=== PATIENT | male | born 1955 | race Hispanic/Latino ===

== ENCOUNTER 2023-01-18 07:50 | Day surgery (SDC) | payer MEDICARE ==
[2023-01-14 11:10] LABS: BASOPHILS % (AUTO) 0.4 % (0.0-5.0); EOSINOPHILS % (AUTO) 0.7 % (0.0-8.0); HEMATOCRIT 45.8 % (42-54); LYMPHOCYTES % (AUTO) 21.8 % (21.0-51.0); MEAN CORPUSCULAR HEMOGLOBIN 31.1 pg (27.0-33.0); MEAN CORPUSCULAR HGB CONC 33.4 g/dL (32.0-36.0); MEAN CORPUSCULAR VOLUME 93.1 fL (79-99); MONOCYTES % (AUTO) 6.9 % (3.0-13.0); PLATELET COUNT (AUTO) 305 K/uL (130-400); RED BLOOD CELL COUNT(AUTO) 4.92 MIL/uL (4.50-6.20); WHITE BLOOD COUNT (AUTO) 9.8 K/uL (4.8-10.8)
[2023-01-14 11:27] VITALS: BP 137/74
[~2023-01-18] VITALS: Ht 172.7 cm; Wt 78.2 kg
[2023-01-18] VITALS (17 sets, daily range): BP systolic 124–159; BP diastolic 63–84
[2023-01-18] MEDS: CEFAZOLIN SODIUM 1 GM VIAL IVPB SCH ×2 (06:00→10:20)
[~2023-01-18 07:50] MED LIST: 0.9%NACL 1000ML 1,000 ML IV SCH; SIMV80TA91 PO
[2023-01-18] MEDS ORDERED: ROPIVACAINE 0.5% 5MG/ML 30ML IJ ONE (08:14)
[2023-01-18] MEDS ORDERED: LACTATED RINGERS 1000ML 1,000 ML IV ONE (09:05)
[2023-01-18] MEDS ORDERED: HYDRALAZINE 20MG/ML VIAL ONE (09:43)
[2023-01-18] MEDS ORDERED: PROPOFOL 10 MG/ML 20ML VIAL IV ONE (10:10)
[2023-01-18] MEDS ORDERED: MIDAZOLAM HCL 1 MG/ML 2ML VIAL ONE (10:10)
[2023-01-18] MEDS ORDERED: FENTANYL CITRATE PF 50 MCG/1 ML 2ML VIAL ONE ×3 (10:10→12:09)
[2023-01-18] MEDS ORDERED: ROCURONIUM 10MG/1ML SYR 10 MG/ML ML ONE ×2 (10:10→10:58)
[2023-01-18] MEDS ORDERED: ONDANSETRON 4MG INJ ONE (11:05)
[2023-01-18] MEDS ORDERED: NEOSTIGMINE 5MG/5ML SYR IV ONE (11:59)
[2023-01-18] MEDS ORDERED: GLYCOPYRROLATE 1 MG/5 ML SYRINGE ONE (11:59)
[2023-01-18] MEDS ORDERED: KETOROLAC 30MG VIAL (30MG/ML) ONE (12:07)
[2023-01-18] MEDS ORDERED: MEPERIDINE-PF 25 MG/ML SYG ONE ×2 (12:20→12:36)
[2023-01-18] MEDS ORDERED: KETOROLAC 15MG/ML VIAL (15MG/ML) ONE (13:01)
== END 2023-01-18 14:00 | disposition home or self-care (01) ==
LOC: DAH 07:50
PROVIDERS: ATTEND Surgery
DX: K40.90 Unilateral inguinal hernia, without obstruction or gangrene, not specified as recurrent (principal); Z20.822 Contact with and (suspected) exposure to COVID-19; Z98.890 Other specified postprocedural states; Z82.49 Family history of ischemic heart disease and other diseases of the circulatory system; Z83.3 Family history of diabetes mellitus
CPT/HCPCS: 85025; 87426; 36415; 93005; 49650; A4663; J7030; A4344; A4215 ×2; J7120; J3010 ×3; J0690; J3490; J2710; J0360; J2250; J2704; J2405; J2175 ×2; J2795; J1885; G0168; A4649; C1781; A4223; A4222; A4221; A4600

== ENCOUNTER 2023-01-26 22:56 | Inpatient (IN) | payer MEDICARE ==
[~2023-01-26] VITALS: Ht 172.7 cm; Wt 77.9 kg
[~2023-01-26 22:56] MED LIST changes: -0.9%NACL 1000ML 1,000 ML IV SCH
[2023-01-26] MEDS ORDERED: ACETAMINOPHEN 650 MG SUPPOSITORY RC ONE (23:05)
[2023-01-26] MEDS ORDERED: 0.9%NACL 1000ML 1,000 ML IV SCH ×2 (23:30)
[2023-01-26 23:48] LABS: BASOPHILS % (AUTO) 0.2 % (0.0-5.0); EOSINOPHILS % (AUTO) 1.1 % (0.0-8.0); LYMPHOCYTES % (AUTO) 4.4 % (21.0-51.0); MEAN CORPUSCULAR HEMOGLOBIN 30.6 pg (27.0-33.0); MEAN CORPUSCULAR HGB CONC 34.6 g/dL (32.0-36.0); MEAN CORPUSCULAR VOLUME 88.4 fL (79-99); MONOCYTES % (AUTO) 8.3 % (3.0-13.0); NEUTROPHILS % (AUTO) 84.9 % (40.0-77.0); PLATELET COUNT (AUTO) 340 K/uL (130-400); RED BLOOD CELL COUNT(AUTO) 4.41 MIL/uL (4.50-6.20); RED CELL DISTRIBUTION WIDTH 13.7 % (11.0-15.5); WHITE BLOOD COUNT (AUTO) 16.2 K/uL (4.8-10.8)
[2023-01-26 23:49] LABS: APPEARANCE,URINE CLEAR (CLEAR); BILIRUBIN,URINE NEGATIVE (NEGATIVE); COLOR,URINE LIGHT-YELLOW (YELLOW); GLUCOSE, URINE (UA) NEGATIVE (NEGATIVE); KETONES,URINE NEGATIVE (NEGATIVE); LEUKOCYTE ESTERASE ,URINE 250 Leu/uL (NEGATIVE); NITRATE,URINE NEGATIVE (NEGATIVE); OCCULT BLOOD,URINE MODERATE (NEGATIVE); PROTEIN,URINE NEGATIVE (NEGATIVE); UROBILINOGEN,URINE 0.2 mg/dL (0.2-1.0)
[2023-01-26 23:59] LABS: BACTERIA,URINE RARE /HPF (None Seen)
[2023-01-27] MEDS: ZOSYN 3.375GM +NS 50ML IVPB SCH ×2 (00:01→23:30)
[2023-01-27 00:05] LABS: ALBUMIN 3.1 g/dL (3.5-5.0); POTASSIUM 4.4 mmol/L (3.5-5.1); TOTAL PROTEIN, SERUM 7.6 g/dL (6.0-8.3)
[2023-01-27] MEDS ORDERED: ACETAMINOPHEN 650 MG SUPPOSITORY RC PRN (01:00)
[2023-01-27] MEDS ORDERED: ACETAMINOPHEN 325 MG TAB PO PRN (01:00)
[2023-01-27 04:20] VITALS: BP 129/71
[2023-01-27] MEDS ORDERED: DIAZ2TAB3 PO (04:41)
[2023-01-27] MEDS ORDERED: HYDR-4068 PO (04:41)
[2023-01-27 07:51] VITALS: BP 131/61
[2023-01-27] MEDS ORDERED: 0.9%NACL 1000ML 1,000 ML IV SCH (09:30)
[2023-01-27] MEDS: PANTOPRAZOLE 40 MG TAB DR PO SCH (10:19)
[2023-01-27] MEDS: ENOXAPARIN SODIUM 30 MG/0.3 ML SQ SCH (10:20)
[2023-01-27 11:57] VITALS: BP 142/64
[2023-01-27 15:23] LABS: CREATININE 4.8 mg/dL (0.5-1.5); POTASSIUM 3.2 mmol/L (3.5-5.1)
[2023-01-27] MEDS ORDERED: ZOSYN 3.375GM +NS 50ML IVPB SCH (15:30)
[2023-01-27] MEDS ORDERED: DIAZEPAM 2 MG TAB PO PRN (15:30)
[2023-01-27] MEDS ORDERED: 0.9%NACL 50ML IV SCH (15:30)
[2023-01-27 15:39] VITALS: BP 151/72
[2023-01-27] MEDS: NICOTINE 14 MG/ 24 HR PATCH TD SCH (16:00)
[2023-01-27] MEDS ORDERED: HALOPERIDOL INJ 5 MG/ML VIAL IM PRN (16:00)
[2023-01-27] MEDS ORDERED: NICOTINE 14 MG/ 24 HR PATCH TD ONE (16:13)
[2023-01-27] MEDS: TAMSULOSIN HCL 0.4 MG CAP.ER.24H PO SCH (16:27)
[2023-01-27 20:34] VITALS: BP 135/62
[2023-01-27] MEDS: SENNOSIDES 8.6 MG TABLET PO SCH (21:00)
[2023-01-27] MEDS: POLYETHYLENE GLYCOL 3350 17 GM POWD.PACK PO SCH (21:00)
[2023-01-27] MEDS: ZOSYN 3.375GM+NS 50ML 50 ML IVPB SCH (21:36)
[2023-01-27] MEDS: SIMVASTATIN 20 MG TABLET PO SCH (21:37)
[2023-01-27 23:19] VITALS: BP 132/68
[2023-01-28 03:42] VITALS: BP 128/70
[2023-01-28 05:24] LABS: CREATININE 2.3 mg/dL (0.5-1.5); MAGNESIUM 1.5 mg/dL (1.80-2.40); PHOSPHORUS 3.3 mg/dL (2.5-4.9); POTASSIUM 4.5 mmol/L (3.5-5.1)
[2023-01-28 06:21] LABS: HEMATOCRIT 33.2 % (42-54); MEAN CORPUSCULAR HEMOGLOBIN 31.3 pg (27.0-33.0); MEAN CORPUSCULAR HGB CONC 34.6 g/dL (32.0-36.0); MEAN CORPUSCULAR VOLUME 90.2 fL (79-99); RED BLOOD CELL COUNT(AUTO) 3.68 MIL/uL (4.50-6.20)
[2023-01-28 07:00] VITALS: BP 112/54
[2023-01-28] MEDS: ZOSYN 3.375GM+NS 50ML 50 ML IVPB SCH ×2 (09:38→21:10)
[2023-01-28] MEDS: NICOTINE 14 MG/ 24 HR PATCH TD SCH (09:45)
[2023-01-28] MEDS: ENOXAPARIN SODIUM 30 MG/0.3 ML SQ SCH (09:46)
[2023-01-28] MEDS: SENNOSIDES 8.6 MG TABLET PO SCH ×2 (09:47→21:00)
[2023-01-28] MEDS: POLYETHYLENE GLYCOL 3350 17 GM POWD.PACK PO SCH ×2 (09:47→21:00)
[2023-01-28] MEDS: PANTOPRAZOLE 40 MG TAB DR PO SCH (09:48)
[2023-01-28] MEDS: TAMSULOSIN HCL 0.4 MG CAP.ER.24H PO SCH (09:48)
[2023-01-28] MEDS ORDERED: RENAL DOSE IV PRN (10:00)
[2023-01-28] MEDS ORDERED: KCL 20 MEQ ERTAB PO PRN (10:00)
[2023-01-28] MEDS ORDERED: LIDOCAINE HCL-MPF 1% 2ML VIAL IV PRN (10:00)
[2023-01-28] MEDS ORDERED: POTASSIUM CHLORIDE 20MEQ/100ML 100 ML IV PRN (10:00)
[2023-01-28] MEDS: DEXTROSE 5 %-0.45 % NACL 1,000 ML IV SCH (10:47)
[2023-01-28 11:00] VITALS: BP 115/52
[2023-01-28 16:06] VITALS: BP 109/61
[2023-01-28 20:24] VITALS: BP 127/72
[2023-01-28] MEDS: SIMVASTATIN 20 MG TABLET PO SCH (21:11)
[2023-01-28 23:30] VITALS: BP 130/66
[2023-01-29 03:56] VITALS: BP 117/66
[2023-01-29 05:19] LABS: BASOPHILS % (AUTO) 0.4 % (0.0-5.0); EOSINOPHILS % (AUTO) 5.6 % (0.0-8.0); HEMATOCRIT 33.1 % (42-54); LYMPHOCYTES % (AUTO) 20.6 % (21.0-51.0); MEAN CORPUSCULAR HEMOGLOBIN 30.7 pg (27.0-33.0); MEAN CORPUSCULAR HGB CONC 34.1 g/dL (32.0-36.0); MEAN CORPUSCULAR VOLUME 89.9 fL (79-99); MONOCYTES % (AUTO) 11.5 % (3.0-13.0); NEUTROPHILS % (AUTO) 60.8 % (40.0-77.0); PLATELET COUNT (AUTO) 309 K/uL (130-400); RED BLOOD CELL COUNT(AUTO) 3.68 MIL/uL (4.50-6.20); RED CELL DISTRIBUTION WIDTH 13.7 % (11.0-15.5); WHITE BLOOD COUNT (AUTO) 8.6 K/uL (4.8-10.8)
[2023-01-29 05:41] LABS: ALBUMIN 2.2 g/dL (3.5-5.0); CREATININE 1.3 mg/dL (0.5-1.5); TOTAL PROTEIN, SERUM 5.3 g/dL (6.0-8.3)
[2023-01-29 05:42] LABS: POTASSIUM 2.7 mmol/L (3.5-5.1)
[2023-01-29] MEDS: POTASSIUM CHLORIDE 10% ELIXIR 20 MEQ/15 ML UDCUP PO PRN (06:26)
[2023-01-29] MEDS: POTASSIUM CHLORIDE 10MEQ/100ML 100 ML IV PRN (06:28)
[2023-01-29] MEDS: LIDOCAINE HCL-MPF 1% 2ML VIAL IV PRN (06:29)
[2023-01-29] MEDS: DEXTROSE 5 %-0.45 % NACL 1,000 ML IV SCH (06:31)
[2023-01-29] MEDS: SENNOSIDES 8.6 MG TABLET PO SCH ×2 (09:29→20:20)
[2023-01-29] MEDS: POLYETHYLENE GLYCOL 3350 17 GM POWD.PACK PO SCH ×2 (09:29→20:20)
[2023-01-29] MEDS: ENOXAPARIN SODIUM 30 MG/0.3 ML SQ SCH (09:29)
[2023-01-29] MEDS: TAMSULOSIN HCL 0.4 MG CAP.ER.24H PO SCH (09:29)
[2023-01-29] MEDS: PANTOPRAZOLE 40 MG TAB DR PO SCH (09:29)
[2023-01-29] MEDS: NICOTINE 14 MG/ 24 HR PATCH TD SCH (09:29)
[2023-01-29] MEDS: ZOSYN 3.375GM+NS 50ML 50 ML IVPB SCH ×2 (09:29→20:13)
[2023-01-29 09:34] VITALS: BP 129/78
[2023-01-29 11:39] VITALS: BP 133/69
[2023-01-29] MEDS: MAGNESIUM 2GM PREMIX 50ML 50 ML IV PRN (15:03)
[2023-01-29 16:53] VITALS: BP 108/67
[2023-01-29] MEDS: SIMVASTATIN 20 MG TABLET PO SCH (20:20)
[2023-01-29 20:21] VITALS: BP 114/61
[2023-01-29 23:23] VITALS: BP 116/72
[2023-01-29 23:47] LABS: MAGNESIUM 1.3 mg/dL (1.80-2.40)
[2023-01-29 23:48] LABS: POTASSIUM 2.9 mmol/L (3.5-5.1)
[2023-01-30 03:55] VITALS: BP 118/69
[2023-01-30] MEDS: LIDOCAINE HCL-MPF 1% 2ML VIAL IV PRN ×2 (06:12→09:39)
[2023-01-30] MEDS: POTASSIUM CHLORIDE 10MEQ/100ML 100 ML IV PRN (06:12)
[2023-01-30] MEDS: POTASSIUM CHLORIDE 10% ELIXIR 20 MEQ/15 ML UDCUP PO PRN ×4 (06:14→15:15)
[2023-01-30 06:18] LABS: BASOPHILS % (AUTO) 0.3 % (0.0-5.0); EOSINOPHILS % (AUTO) 4.8 % (0.0-8.0); HEMATOCRIT 34.1 % (42-54); LYMPHOCYTES % (AUTO) 25.5 % (21.0-51.0); MEAN CORPUSCULAR HEMOGLOBIN 30.5 pg (27.0-33.0); MEAN CORPUSCULAR HGB CONC 33.4 g/dL (32.0-36.0); MEAN CORPUSCULAR VOLUME 91.2 fL (79-99); MONOCYTES % (AUTO) 10.1 % (3.0-13.0); NEUTROPHILS % (AUTO) 58.3 % (40.0-77.0); PLATELET COUNT (AUTO) 327 K/uL (130-400); RED BLOOD CELL COUNT(AUTO) 3.74 MIL/uL (4.50-6.20); RED CELL DISTRIBUTION WIDTH 13.4 % (11.0-15.5); WHITE BLOOD COUNT (AUTO) 9.8 K/uL (4.8-10.8)
[2023-01-30 06:30] LABS: ALBUMIN 2.3 g/dL (3.5-5.0); CREATININE 1.2 mg/dL (0.5-1.5); MAGNESIUM 1.2 mg/dL (1.80-2.40); TOTAL PROTEIN, SERUM 5.6 g/dL (6.0-8.3)
[2023-01-30 06:45] LABS: POTASSIUM 2.8 mmol/L (3.5-5.1)
[2023-01-30 08:00] VITALS: BP 136/59
[2023-01-30] MEDS: POLYETHYLENE GLYCOL 3350 17 GM POWD.PACK PO SCH ×2 (09:00→19:46)
[2023-01-30] MEDS: NICOTINE 14 MG/ 24 HR PATCH TD SCH (09:35)
[2023-01-30] MEDS: ENOXAPARIN SODIUM 30 MG/0.3 ML SQ SCH (09:35)
[2023-01-30] MEDS: ZOSYN 3.375GM+NS 50ML 50 ML IVPB SCH (09:35)
[2023-01-30] MEDS: PANTOPRAZOLE 40 MG TAB DR PO SCH (09:35)
[2023-01-30] MEDS: TAMSULOSIN HCL 0.4 MG CAP.ER.24H PO SCH (09:36)
[2023-01-30] MEDS: SENNOSIDES 8.6 MG TABLET PO SCH ×2 (09:36→19:46)
[2023-01-30] MEDS: HYDROCODONE/ACETAMINOPHEN 10/325 MG TAB PO PRN ×2 (11:08→19:49)
[2023-01-30 11:45] VITALS: BP 124/79
[2023-01-30] MEDS: MAGNESIUM 2GM PREMIX 50ML 50 ML IV PRN (12:16)
[2023-01-30 16:05] VITALS: BP 124/71
[2023-01-30 17:15] LABS: MAGNESIUM 1.8 mg/dL (1.80-2.40); POTASSIUM 4.3 mmol/L (3.5-5.1)
[2023-01-30] MEDS: SIMVASTATIN 20 MG TABLET PO SCH (19:46)
[2023-01-30 20:00] VITALS: BP 120/73
[2023-01-30 23:20] VITALS: BP 120/60
[2023-01-31 04:00] VITALS: BP 139/69
[2023-01-31] MEDS: MAGNESIUM 2GM PREMIX 50ML 50 ML IV PRN ×2 (06:17→20:31)
[2023-01-31 08:00] VITALS: BP 126/62
[2023-01-31] MEDS: SENNOSIDES 8.6 MG TABLET PO SCH ×2 (09:11→20:29)
[2023-01-31] MEDS: TAMSULOSIN HCL 0.4 MG CAP.ER.24H PO SCH (09:11)
[2023-01-31] MEDS: POLYETHYLENE GLYCOL 3350 17 GM POWD.PACK PO SCH ×2 (09:11→20:31)
[2023-01-31] MEDS: ENOXAPARIN SODIUM 30 MG/0.3 ML SQ SCH (09:11)
[2023-01-31] MEDS: NICOTINE 14 MG/ 24 HR PATCH TD SCH (09:11)
[2023-01-31] MEDS: PANTOPRAZOLE 40 MG TAB DR PO SCH (09:11)
[2023-01-31 09:19] LABS: CREATININE 1.1 mg/dL (0.5-1.5); POTASSIUM 3.3 mmol/L (3.5-5.1)
[2023-01-31] MEDS: HYDROCODONE/ACETAMINOPHEN 10/325 MG TAB PO PRN ×2 (09:22→20:30)
[2023-01-31] MEDS: POTASSIUM CHLORIDE 10% ELIXIR 20 MEQ/15 ML UDCUP PO PRN ×4 (10:18→20:30)
[2023-01-31 11:00] VITALS: BP 126/69
[2023-01-31 16:00] VITALS: BP 136/78
[2023-01-31 20:13] VITALS: BP 126/74
[2023-01-31] MEDS: SIMVASTATIN 20 MG TABLET PO SCH (20:29)
[2023-02-01 00:08] VITALS: BP 131/77
[2023-02-01 04:59] VITALS: BP 137/71
[2023-02-01 05:46] LABS: MAGNESIUM 1.8 mg/dL (1.80-2.40)
[2023-02-01] MEDS: MAGNESIUM 2GM PREMIX 50ML 50 ML IV PRN (05:58)
[2023-02-01 08:00] VITALS: BP 127/83
[2023-02-01] MEDS: POLYETHYLENE GLYCOL 3350 17 GM POWD.PACK PO SCH (08:33)
[2023-02-01] MEDS: SENNOSIDES 8.6 MG TABLET PO SCH (08:34)
[2023-02-01] MEDS: TAMSULOSIN HCL 0.4 MG CAP.ER.24H PO SCH (08:35)
[2023-02-01] MEDS: PANTOPRAZOLE 40 MG TAB DR PO SCH (08:35)
[2023-02-01] MEDS: NICOTINE 14 MG/ 24 HR PATCH TD SCH (08:36)
[2023-02-01] MEDS: ENOXAPARIN SODIUM 30 MG/0.3 ML SQ SCH (08:40)
[2023-02-01] MEDS ORDERED: AMOX-426 PO (09:03)
[2023-02-01] MEDS ORDERED: TAMS-1 PO (09:03)
[2023-02-01] MEDS ORDERED: POLY17PO4 PO (09:03)
[2023-02-01 11:46] VITALS: BP 126/73
[2023-02-01] MEDS ORDERED: NICO-777 TD (12:26)
== END 2023-02-01 14:30 | disposition home or self-care (01) | DRG 682 ==
LOC: EDH 22:56 → OBSVTOIN 01-27 00:42 → EDHIP 01-27 00:42 → 2AH 01-27 04:20 → 3DH 01-27 18:51
PROVIDERS: ADMIT Internal Medicine; ATTEND Internal Medicine
DX: N17.0 Acute kidney failure with tubular necrosis (principal); G93.41 Metabolic encephalopathy; N30.00 Acute cystitis without hematuria; Z20.822 Contact with and (suspected) exposure to COVID-19; K59.00 Constipation, unspecified; N13.9 Obstructive and reflux uropathy, unspecified; E78.00 Pure hypercholesterolemia, unspecified; M41.9 Scoliosis, unspecified; Z80.42 Family history of malignant neoplasm of prostate; Z87.891 Personal history of nicotine dependence; Z85.46 Personal history of malignant neoplasm of prostate; Z90.79 Acquired absence of other genital organ(s)
CPT/HCPCS: 36415; 71045; 76770; 80048; 80053; 81001; 83605; 83735; 84100; 84132; 84443; 84484; 85025; 85027; 87040; 87088; 87635; 87804; 93005; 97039; C9803; G0378; J1630; J1650; J2543; J3475; J3480; J3490; J7030; J7042